=== PATIENT | male | born 1990 | race African-American/Black ===

== ENCOUNTER 2017-06-18 06:56 | Emergency (ER) | payer OTHER ==
[~2017-06-18] VITALS: Ht 167.6 cm; Wt 96.3 kg
[2017-06-18] MEDS ORDERED: AZITHROMYCIN250 MG1 PO (09:11)
[2017-06-18 09:45] VITALS: BP 112/72
== END 2017-06-18 09:46 | disposition home or self-care (01) ==
LOC: EME 06:56
DX: J02.0 Streptococcal pharyngitis (principal)
CPT/HCPCS: 87502; 99281; 99284; J1100